=== PATIENT | female | born 1965 | race Two or more races ===

== ENCOUNTER 2018-01-03 08:35 | Outpatient (CLI) | payer OTHER | END 2018-01-03 10:15 | disposition home or self-care (01) | LOC: RAD 501 08:35 | DX: I10 Essential (primary) hypertension (principal) ==

== ENCOUNTER → 2018-10-31 | Outpatient (CLI) | payer OTHER | END | disposition home or self-care (01) | LOC: RAD 501 09:14 | DX: M54.2 Cervicalgia (principal); M54.5 Low back pain; M54.6 Pain in thoracic spine; M25.551 Pain in right hip; M25.552 Pain in left hip ==

== ENCOUNTER 2021-09-18 08:50 | Outpatient (CLI) | payer OTHER | END 2021-09-18 08:51 | disposition home or self-care (01) | LOC: SONOGRAMA 08:50 | PROVIDERS: ATTEND Internal Medicine Gastroenterology | DX: R16.0 Hepatomegaly, not elsewhere classified (principal) ==

== ENCOUNTER 2024-02-26 08:07 | Outpatient (CLI) | payer OTHER | END 2024-02-26 08:20 | disposition home or self-care (01) | LOC: RAD 08:07 | PROVIDERS: ATTEND Specialist | DX: Z01.818 Encounter for other preprocedural examination (principal) ==